=== PATIENT | female | born 1990 | race Caucasian/White ===

== ENCOUNTER 2020-03-27 11:29 | Emergency (ER) | payer BC ==
--- OUTSIDE RECORDS SUMMARY | 2020-03-27 11:55 | XMS REPORT | Continuity of Care Document ---
:1990 Author Organization [facility] t Address [address] [place] [address] Care Team Providers Name Role Phone Unavailable Unavailable Unavailable Problems Condition Condition Condition Status Onset Resolution Last Treating Co mments Source Name Details Category Date Date Treatment Clinician Date Disorder Disorder Problem Active [place] of vitamin of Vitamin da B12 [facility]12 [facility] Labyrinthi Labyrinthi Problem Active [facility] tis tis [facility] Infection Infection Problem Active [facility] involving Involving da inner ear Inner Ear Medi bertram Group Acute Acute Problem Active [place] upper Upper da respirator Respirator Me dical y y Group infection Infection Sinusitis Sinusitis Problem Active [facility] Gastroesop Gastroesop Problem Active [facility] hageal hageal da reflux Reflux Medical disease Disease Group Constipati Constipati Problem Active [facility] on on [facility] Allergies, Adverse Reactions, Alerts Allergy Allergy Status Severity Reaction(s) Onset Inactive Treating Comm ents Source Name Type Date Date Clinician Hydrocod Allergy Active [place] one to da substanc Medical e Group SULFA Allergy Active [facility] (SULFONA to da MIDE substanc Medical ANTIBIOT e Group ICS) Social History Smoking Status Start Date Stop Date Source Never Smoker [facility] Medications Ordered Filled Start Stop Current Ordering Indication Dosage Frequency Signature Comments Components Source Medication Medication Date Date Medication? Clinician (SIG) Name Name amoxicillin amoxicillin No 1 Q12H amoxicilli [facility] 875 mg 875 mg n 875 mg da tablet Take tablet Take tablet Medical 1 tablet 1 tablet Take 1 Group every 12 every 12 tablet hours by hours by every 12 oral route oral route hours by for 7 days. for 7 days. oral route for 7 days. escitalopra escitalopra No escitalopr [facility] m 10 mg m 10 mg am 10 mg da tablet tablet tablet Medical Group Immunizations Ordered Immunization Filled Immunization Date Status Commen ts Source Name Name Tdap Tdap 2017-04-02 Completed [facility] 00:00:00 [facility] Vital Signs Vital Name Observation Time Observation Value Comments Source BP Diastolic 2018-03-22 00:00:00 76 mm[Hg] [facility] Height 2018-03-22 00:00:00 64 [in_i] [facility] BMI (Body Mass 2018-03-22 00:00:00 25.7 kg/m2 [facility] Index) Group BP Systolic 2018-03-22 00:00:00 110 mm[Hg] [facility] Body Weight 2018-03-22 00:00:00 2400 [oz_av] [facility] Procedures Procedure Date / Time Performed Performing Clinician [facility] e Caesarean Section 2015-05-29 00:00:00 [facility] Tonsillectomy [facility] Plan of Care Planned Activity Planned Date Details Comments Source Instructions [facility] Encounters Start End Encounter Admission Attending Care Care Encounter Source Date/Time Date/Time Type Type Clinicians Facility Department ID 2018-03-22 2018-03-22 M[facility] [place] - [id number] [facility] 00:00:00 00:00:00 [facility]: [address] - [address], [place] [address] , Ph. Results This patient has no known results.
[2020-03-27] MEDS ORDERED: ONDANSETRON 4 MG/2 ML VIAL ONE (14:05)
[2020-03-27] MEDS ORDERED: NA CHLORIDE 0.9% 1,000 ML ONE (14:05)
[2020-03-27 14:10] LABS: Absolute Lymphocytes (CBC) 0.8 K/uL (0.7-4.9); Basophils % 0.1 % (0-1.3); Hematocrit 41.2 % (36.0-45.0); Lymphocytes % 9.9 % (15.3-44.8); MPV 8.6 fL (7.6-11.3); RBC Red Blood Cell Count 4.44 M/uL (3.86-4.86)
[2020-03-27 14:19] LABS: Protime INR 1.13
[2020-03-27 14:23] LABS: ALT/SGPT 18 U/L (12-78); AST/SGOT 16 U/L (15-37); Alkaline Phosphatase 56 U/L (45-117); BUN Blood Urea Nitrogen 14 mg/dL (7-18); Bicarbonate 29 mmol/L (21-32); Bilirubin Direct 0.2 mg/dL (0-0.2); Bilirubin Total 0.7 mg/dL (0.2-1.0); Glucose Level 95 mg/dL (74-106); Lipase 86 U/L (73-393); Magnesium 1.7 mg/dL (1.8-2.4); NT PRO-BNP 37 pg/mL (<125); Potassium 3.2 mmol/L (3.5-5.1); Protein, Total 7.3 g/dL (6.4-8.2); Sodium Level 140 mmol/L (136-145); Troponin (Emerg Dept Use Only) < 0.02 ng/mL (0.0-0.045)
[2020-03-27] MEDS ORDERED: POTASSIUM CL SA 10 MEQ TAB PO ONE (14:52)
[2020-03-27 15:15] LABS: SARS-COV-2 RT PCR NEGATIVE (NEGATIVE)
--- NOTE | 2020-03-27 15:15 | RAD REPORT ---
EXAM DESCRIPTION: [place] Single View03/27/2020 2:49 pm CLINICAL HISTORY: Chest pain COMPARISON: none FINDINGS: The lungs appear clear of acute infiltrate. The heart is normal size IMPRESSION: No acute abnormalities displayed
--- NOTE | 2020-03-27 15:27 | ER ---
Nurse's Notes [facility] Name: Karrie Shaikh Age: 29 yrs Sex: Female : 1990 Arrival Date: 03/27/2020 Time: 11:31 Bed 24 Private MD: Diagnosis: Nausea with vomiting, unspecified;Hypokalemia Presentation: 03/27 12:06 Chief complaint: Patient states: nausea/vomiting last night, fatigue x2 days, francheska hand sv tingling, neck pain, low back pain, headache, photosensitivity, 'racing heart', right side pain "I think I may have a stomach ulcer.", chest tightness. Symptoms started Wednesday. Coronavirus screen: Client denies travel out of the [place] in the last 14 days. Client presents with at least one sign or symptom that may indicate coronavirus-19. Standard/surgical mask placed on the client. Provider contacted for isolation considerations. Ebola Screen: No symptoms or risks identified at this time. Risk Assessment: Do you want to hurt yourself or someone else? Patient reports no desire to harm self or others. Onset of symptoms was March 25, 2020. 12:06 Method Of Arrival: Ambulatory sv 12:06 Acuity: SHADIA 3 sv 12:09 Initial Sepsis Screen: Does the patient meet any 2 criteria? No. Patient's initial sv sepsis screen is negative. Does the patient have a suspected source of infection? No. Patient's initial sepsis screen is negative. Triage Assessment: 12:11 General: Appears in no apparent distress. uncomfortable, Behavior is calm, cooperative, sv appropriate for age. Neuro: Level of Consciousness is awake, alert, obeys commands, Oriented to person, place, time, situation, Gait is steady. Respiratory: Respiratory effort is even, unlabored. Historical: - Allergies: 12:09 Sulfa (Sulfonamide Antibiotics); sv - PMHx: 12:09 Anxiety; sv - PSHx: 12:09 ; sv Screenin:00 Abuse screen: Denies threats or abuse. Nutritional screening: No deficits noted. vg1 Tuberculosis screening: No symptoms or risk factors identified. Fall Risk No fall in past 12 months (0 pts). No secondary diagnosis (0 pts). IV access (20 points). Ambulatory Aid- None/Bed Rest/Nurse Assist (0 pts). Gait- Normal/Bed Rest/Wheelchair (0 pts) Mental Status- Oriented to own ability (0 pts). Total Meyer Fall Scale indicates No Risk (0-24 pts). Assessment: 12:14 Reassessment: Received VO from Dr Benoit for EKG. sv 13:35 General: Appears in no apparent distress. uncomfortable, Behavior is calm, cooperative. vg1 Pain: Denies pain. Complains of pain in chest discomfort, [place] hand numbness/tingling; neck and lower back pain Pain currently is 0 out of 10 on a pain scale. at worst was 3 out of 10 on a pain scale. Quality of pain is described as aching, tingling, numb. Neuro: Level of Consciousness is awake, alert, obeys commands, Oriented to person, place, time, situation. Cardiovascular: Capillary refill < 3 seconds in bilateral fingers Patient's skin is warm and dry. Respiratory: Airway is patent Respiratory effort is even, unlabored, Respiratory pattern is regular, symmetrical. GI: Reports nausea, vomiting. : No signs and/or symptoms were reported regarding the genitourinary system. EENT: No signs and/or symptoms were reported regarding the EENT system. Derm: Skin is intact, is healthy with good turgor. Musculoskeletal: Circulation, motion, and sensation intact. 14:38 Reassessment: Patient appears in no apparent distress at this time. No changes from vg1 previously documented assessment. Patient is alert, oriented x 3, equal unlabored respirations, skin warm/dry/pink. Vital Signs: 12:09 BP 115 / 73; Pulse 89; Resp 16; Temp 99.2(TE); Pulse Ox 100% on R/A; Weight 71.21 kg; sv Height 5 ft. 4 in. (162.56 cm); 13:36 BP 116 / 77 LA (auto/reg); Pulse 92; Resp 20; Temp 98.5(O); Pulse Ox 100% ; Pain 0/10; jp3 14:00 BP 116 / 77; Pulse 90; Resp 14; Pulse Ox 100% on R/A; vg1 15:00 BP 113 / 73; Pulse 72; Resp 16; Pulse Ox 100% on R/A; vg1 12:09 Body Mass Index 26.95 (71.21 kg, 162.56 cm) sv ED Course: 11:31 Patient arrived in ED. mr 12:06 Arm band placed on. sv 12:09 Triage completed. sv 12:14 EKG completed in triage. Results shown to MD. sv 12:40 EKG done, by ED staff, reviewed by Ya LOUIS. jp3 13:31 Cuca Rosado, RN is Primary Nurse. vg1 13:33 Ya Hawthorne FNP-C is [facility]. kb 13:33 Ken Benoit MD is Attending Physician. kb 13:37 Bed in low position. Call light in reach. Warm blanket given. Verbal reassurance given. jp3 Pulse ox on. NIBP on. 13:38 Patient maintains SpO2 saturation greater than 95% on room air. jp3 13:51 Initial lab(s) drawn, by me, sent to lab. Inserted saline lock: 20 gauge in right jp3 antecubital area, using aseptic technique. Blood collected. 13:52 COVID swab sent to lab. Flu and/or RSV swab sent to lab. jp3 14:05 Magnesium Sent. sv 14:05 LFT's Sent. sv 14:05 CBC with Diff Sent. sv 14:05 Basic Metabolic Panel Sent. sv 14:49 XRAY Chest (1 view) In Process Unspecified. EDMS 15:34 No provider procedures requiring assistance completed. IV discontinued, intact, vg1 bleeding controlled, No redness/swelling at site. Pressure dressing applied. Administered Medications: 13:57 Drug: Zofran (Ondansetron) 4 mg Route: IVP; Site: right antecubital; vg1 15:35 Follow up: Response: Nausea is decreased vg1 13:57 Drug: NS 0.9% 1000 ml Route: IV; Rate: 1000 ml; Site: right antecubital; vg1 15:36 Follow up: IV Status: Completed infusion; IV Intake: 1000ml vg1 14:38 Drug: Potassium Chloride 40 mEq Route: PO; vg1 15:36 Follow up: Response: No adverse reaction vg1 Intake: 15:36 IV: 1000ml; Total: 1000ml. vg1 Outcome: 15:27 Discharge ordered by . kb 15:35 Discharged to home ambulatory. vg1 15:35 Condition: stable 15:35 Discharge instructions given to patient, Instructed on discharge instructions, follow up and referral plans. medication usage, Demonstrated understanding of instructions, follow-up care, medications, Prescriptions given X 2. 15:35 Patient left the ED. vg1 Signatures: Dispatcher [employer] EDYa Nickerson, MISSY JAMISON-Lory Fu, RN RN demetrius MartinezaSabine mr Jayson, Shaheen [email or web address] Cuca Rosado, RN RN vg1 Corrections: (The following items were deleted from the chart) 12:11 12:09 Pulse 89bpm; Resp 16bpm; Pulse Ox 100% RA; Temp 99.2F Temporal; 71.21 kg; Height sv 5 ft. 4 in.; BMI: 26.9; sv
--- NOTE | 2020-03-27 15:27 | EDPHYS ---
Physician Documentation [facility] Name: Karrie Shaikh Age: 29 yrs Sex: Female : 1990 Arrival Date: 03/27/2020 Time: 11:31 Bed 24 Private MD: ED Physician Ken Benoit HPI: 03/27 16:26 This 29 yrs old Female presents to ER via Ambulatory with complaints of Chest kb Discomfort, Numbness Of Hand. 16:27 The patient presents to the emergency department with nausea, vomiting, abdominal pain. kb Onset: The symptoms/episode began/occurred yesterday. Possible causes: unknown. The symptoms are aggravated by nothing. The symptoms are alleviated by nothing. Associated signs and symptoms: Pertinent positives: abdominal pain, nausea, vomiting, Pertinent negatives: fever. Severity of symptoms: At their worst the symptoms were moderate in the emergency department the symptoms have improved markedly. The patient has not experienced similar symptoms in the past. The patient has not recently seen a physician. Pt reports fatigue, n/v, abd pain, chest discomfort, low back pain, shortness of breath, headache, tingling to all extremities, and neck pain since yesterday. States most symptoms have resolved at this time. Now only has slight tingling in hands. Called her PCP today and was told to come to the ER for evaluation.. Historical: - Allergies: 12:09 Sulfa (Sulfonamide Antibiotics); sv - PMHx: 12:09 Anxiety; sv - PSHx: 12:09 ; sv ROS: 16:23 : Negative for injury, bleeding, discharge, and swelling, MS/Extremity: Negative for kb injury and deformity, Skin: Negative for injury, rash, and discoloration. 16:23 Constitutional: Positive for chills, fatigue, malaise. 16:23 Cardiovascular: Positive for chest pain. 16:23 Respiratory: Positive for shortness of breath. 16:23 Abdomen/GI: Positive for abdominal pain, nausea and vomiting. 16:23 Back: Positive for pain at rest, of the low back area. 16:23 Neuro: Positive for headache, tingling, of the right arm, left arm, right leg and left leg. Exam: 14:12 Constitutional: This is a well developed, well nourished patient who is awake, alert, kb and in no acute distress. Head/Face: Normocephalic, atraumatic. Chest/axilla: Normal chest wall appearance and motion. Nontender with no deformity. No lesions are appreciated. Cardiovascular: Regular rate and rhythm with a normal S1 and S2. No gallops, murmurs, or rubs. Normal PMI, no JVD. No pulse deficits. Respiratory: Lungs have equal breath sounds bilaterally, clear to auscultation and percussion. No rales, rhonchi or wheezes noted. No increased work of breathing, no retractions or nasal flaring. Skin: Warm, dry with normal turgor. Normal color with no rashes, no lesions, and no evidence of cellulitis. MS/ Extremity: Pulses equal, no cyanosis. Neurovascular intact. Full, normal range of motion. Neuro: Awake and alert, GCS 15, oriented to person, place, time, and situation. Cranial nerves II-XII grossly intact. Motor strength 5/5 in all extremities. Sensory grossly intact. Cerebellar exam normal. Normal gait. 14:12 ECG was reviewed by the Attending Physician. 16:26 Abdomen/GI: Inspection: abdomen appears normal, Bowel sounds: normal, in all quadrants, kb Palpation: soft, in all quadrants, mild abdominal tenderness, in all quadrants. Vital Signs: 12:09 BP 115 / 73; Pulse 89; Resp 16; Temp 99.2(TE); Pulse Ox 100% on R/A; Weight 71.21 kg; sv Height 5 ft. 4 in. (162.56 cm); 13:36 BP 116 / 77 LA (auto/reg); Pulse 92; Resp 20; Temp 98.5(O); Pulse Ox 100% ; Pain 0/10; jp3 14:00 BP 116 / 77; Pulse 90; Resp 14; Pulse Ox 100% on R/A; vg1 15:00 BP 113 / 73; Pulse 72; Resp 16; Pulse Ox 100% on R/A; vg1 12:09 Body Mass Index 26.95 (71.21 kg, 162.56 cm) sv MDM: 13:33 Patient medically screened. kb 15:44 Data reviewed: vital signs, nurses notes. Data interpreted: Pulse oximetry: on room air kb is 100 %. Interpretation: normal. Counseling: I had a detailed discussion with the patient and/or guardian regarding: the historical points, exam findings, and any diagnostic results supporting the discharge/admit diagnosis, lab results, radiology results, the need for outpatient follow up, a family practitioner, to return to the emergency department if symptoms worsen or persist or if there are any questions or concerns that arise at home. 03/27 13:41 Order name: Basic Metabolic Panel kb 03/27 13:41 Order name: CBC with Diff kb 03/27 13:41 Order name: LFT's kb 03/27 13:41 Order name: Magnesium kb 03/27 13:41 Order name: NT PRO-BNP; Complete Time: 14:29 kb 03/27 13:41 Order name: PT-INR; Complete Time: 14:43 kb 03/27 13:41 Order name: Troponin (emerg Dept Use Only); Complete Time: 14:29 kb 03/27 13:41 Order name: Lipase; Complete Time: 14:29 kb 03/27 13:41 Order name: Basic Metabolic Panel; Complete Time: 14:29 EDMS 03/27 13:41 Order name: CBC with Automated Diff; Complete Time: 14:43 EDMS 03/27 13:41 Order name: Liver (Hepatic) Function; Complete Time: 14:29 EDMS 03/27 13:42 Order name: Magnesium; Complete Time: 14:29 EDMS 03/27 12:28 Order name: EKG; Complete Time: 12:29 sv 03/27 12:28 Order name: EKG - Nurse/Tech; Complete Time: 12:28 sv 03/27 13:41 Order name: XRAY Chest (1 view); Complete Time: 15:17 kb 03/27 13:41 Order name: Cardiac monitoring; Complete Time: 13:52 kb 03/27 13:41 Order name: IV Saline Lock; Complete Time: 13:52 kb 03/27 13:41 Order name: Labs collected and sent; Complete Time: 13:52 kb 03/27 13:41 Order name: O2 Per Protocol; Complete Time: 13:52 kb 03/27 13:41 Order name: O2 Sat Monitoring; Complete Time: 13:52 kb 03/27 15:15 Order name: COVID-19/FLU A+B; Complete Time: 15:17 EDMS EC:12 Rate is 93 beats/min. Rhythm is regular. QRS [place] is Normal. VT interval is normal at kb 152 msec. QRS interval is normal at 82 msec. QT interval is normal at 358 msec. Administered Medications: 13:57 Drug: Zofran (Ondansetron) 4 mg Route: IVP; Site: right antecubital; vg1 15:35 Follow up: Response: Nausea is decreased vg1 13:57 Drug: NS 0.9% 1000 ml Route: IV; Rate: 1000 ml; Site: right antecubital; vg1 15:36 Follow up: IV Status: Completed infusion; IV Intake: 1000ml vg1 14:38 Drug: Potassium Chloride 40 mEq Route: PO; vg1 15:36 Follow up: Response: No adverse reaction vg1 Disposition: 03/28 05:59 Co-signature as Attending Physician, Ken Benoit MD I agree with the assessment and kdr plan of care. Disposition: 03/27/20 15:27 Discharged to Home. Impression: Nausea with vomiting, unspecified, Hypokalemia. - Condition is Stable. - Discharge Instructions: Nausea and Vomiting, Adult, [id number], Hypokalemia. - Prescriptions for Bentyl 20 mg Oral Tablet - take 1 tablet by ORAL route every 6 hours As needed; 20 tablet. Zofran 4 mg Oral Tablet - take 1 tablet by ORAL route every 6 hours As needed; 20 tablet. - Medication Reconciliation Form, Thank You Letter, Antibiotic Education, Prescription Opioid Use form. - Follow up: Emergency Department; When: As needed; Reason: Worsening of condition. Follow up: Private Physician; When: 2 - 3 days; Reason: Recheck today's complaints, Continuance of care, Re-evaluation by your physician. Signatures: Dispatcher [employer] EDMO Ya Hawthorne, SHAHEEN-C SERVICE GIRL-Lory Fu, RN RN Ken Wadsworth MD MD kdr Garcia, Victoria RN RN vg1 Corrections: (The following items were deleted from the chart) 03/27 14:20 13:42 Influenza Screen (A \T\ B)+BA.LAB.BRZ ordered. EDMO EDMS 14:20 13:42 CORONAVIRUS+MR.LAB.BRZ ordered. EDMO EDMS 15:35 15:27 03/27/2020 15:27 Discharged to Home. Impression: Nausea with vomiting, vg1 unspecified; Hypokalemia. Condition is Stable. Forms are Medication Reconciliation Form, Thank You Letter, Antibiotic Education, Prescription Opioid Use. Follow up: Emergency Department; When: As needed; Reason: Worsening of condition. Follow up: Private Physician; When: 2 - 3 days; Reason: Recheck today's complaints, Continuance of care, Re-evaluation by your physician. kb 16:27 14:12 Constitutional: This is a well developed, well nourished patient who is awake, kb alert, and in no acute distress. Head/Face: Normocephalic, atraumatic. Chest/axilla: Normal chest wall appearance and motion. Nontender with no deformity. No lesions are appreciated. Cardiovascular: Regular rate and rhythm with a normal S1 and S2. No gallops, murmurs, or rubs. Normal PMI, no JVD. No pulse deficits. Respiratory: Lungs have equal breath sounds bilaterally, clear to auscultation and percussion. No rales, rhonchi or wheezes noted. No increased work of breathing, no retractions or nasal flaring. Abdomen/GI: Soft, non-tender, with normal bowel sounds. No distension or tympany. No guarding or rebound. No evidence of tenderness throughout. Skin: Warm, dry with normal turgor. Normal color with no rashes, no lesions, and no evidence of cellulitis. MS/ Extremity: Pulses equal, no cyanosis. Neurovascular intact. Full, normal range of motion. Neuro: Awake and alert, GCS 15, oriented to person, place, time, and situation. Cranial nerves II-XII grossly intact. Motor strength 5/5 in all extremities. Sensory grossly intact. Cerebellar exam normal. Normal gait. kb
[2020-03-27 15:56] VITALS: O2SAT 100
[2020-03-27 15:58] VITALS: TEMP 98.5
[2020-03-27 16:00] VITALS: BP 113/73
== END 2020-03-27 15:35 | disposition home or self-care (01) ==
LOC: ER 11:29
DX: E87.6 Hypokalemia (principal); Z20.822 Contact with and (suspected) exposure to COVID-19; Z88.2 Allergy status to sulfonamides
CPT/HCPCS: 96361; 93005; 85025; 80048; 36415; 83735; 85610; 80076; 84484; 83690; 83880; 0240U; 71045; 96374; 99285; J7030; J2405